=== PATIENT | female | born 2005 | race Caucasian/White ===

== ENCOUNTER 2023-07-23 16:18 | Emergency (ER) | payer MEDICAID ==
[2023-07-23 16:34] VITALS: RESP 24; TEMP 97; O2SAT 98
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
[2023-07-23 17:16] VITALS: BP 131/88; PULSE 83
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
== END 2023-07-23 17:19 | disposition home or self-care (01) ==
LOC: ED 16:18
DX: S13.4XXA Sprain of ligaments of cervical spine, initial encounter (principal); G44.319 Acute post-traumatic headache, not intractable; M25.512 Pain in left shoulder; Z79.899 Other long term (current) drug therapy; Z28.310 Unvaccinated for COVID-19
CPT/HCPCS: 72050; 73030; 99285

== ENCOUNTER 2024-01-11 21:56 | Observation (INO) | payer OTHER ==
[2024-01-11 22:30] LABS: Amphetamine,Urine NEGATIVE (NEGATIVE); Barbiturate,Urine NEGATIVE (NEGATIVE); Benzodiazepine,Urine NEGATIVE (NEGATIVE); Cocaine,Urine NEGATIVE (NEGATIVE); Methadone,Urine NEGATIVE (NEGATIVE); Opiate,Urine NEGATIVE (NEGATIVE); PCP,Urine NEGATIVE (NEGATIVE); THC,Urine POSITIVE (NEGATIVE)
[2024-01-11 22:37] VITALS: RESP 18; TEMP 98.7; O2SAT 99
[2024-01-11 23:06] LABS: Appearance Clear (Clear); Bacteria Rare /HPF (None Seen); Bilirubin Negative (Negative); Blood Negative (Negative); Epithelial Cells Few /HPF (None Seen); Glucose, Urine Negative (Negative); Hyaline Casts NONE SEEN /LPF (0-2); Ketones Trace (Negative); Leukocyte Esterase Small (Negative); Nitrite Negative (Negative); Ph 6.5 (4.6-8.0); Protein,Urine Dip Trace (Negative); Specific Gravity >=1.030 (1.005-1.030)
[2024-01-11 23:07] LABS: ADD URINE CULTURE? YES (NO)
[2024-01-11 23:49] VITALS: BP 125/81; PULSE 95
== END 2024-01-11 23:40 | disposition home or self-care (01) ==
LOC: OB 21:56
PROVIDERS: ADMIT Family Medicine; ATTEND Family Medicine
DX: Z34.82 Encounter for supervision of other normal pregnancy, second trimester (principal); Z3A.27 27 weeks gestation of pregnancy
CPT/HCPCS: 80307; 81001; 87086; G0378; G0379

== ENCOUNTER 2024-09-30 17:02 | Emergency (ER) | payer OTHER ==
[2024-09-30 17:20] VITALS: BP 145/90; PULSE 82; RESP 18; TEMP 97; O2SAT 97
[2024-09-30] MEDS ORDERED: XYLOCAINE VISCOUS 2% 15 ML CUP ONE (17:23)
[2024-09-30] MEDS ORDERED: SILVADENE 50 GM TP ONE (17:24)
[2024-09-30] MEDS: SILVADENE 50 GM TP ONE (17:34)
[2024-09-30] MEDS: XYLOCAINE VISCOUS 2% 15 ML CUP PO ONE (17:34)
[2024-09-30] MEDS ORDERED: MORPHINE SULFATE 4 MG INJ ONE (17:36)
[2024-09-30] MEDS: MORPHINE SULFATE 4 MG INJ IM ONE (17:40)
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
[2024-09-30] MEDS ORDERED: NORCO 5/325 MG ONE (18:04)
[2024-09-30] MEDS: NORCO 5/325 MG PO ONE (18:07)
== END 2024-09-30 18:24 | disposition home or self-care (01) ==
LOC: ED 17:02
DX: T23.232A Burn of second degree of multiple left fingers (nail), not including thumb, initial encounter (principal); T23.152A Burn of first degree of left palm, initial encounter; X15.3XXA Contact with hot saucepan or skillet, initial encounter; Z79.891 Long term (current) use of opiate analgesic; Z79.899 Other long term (current) drug therapy
CPT/HCPCS: 96372; 99283; J2270; A9270-GY

== ENCOUNTER 2024-11-17 13:15 | Emergency (ER) | payer OTHER ==
[2024-11-17 13:28] VITALS: RESP 22; TEMP 98.5
[2024-11-17 13:47] LABS: HCG URINE TEST NEGATIVE (NEGATIVE)
[2024-11-17 13:58] LABS: Absolute Neutrophil Ct (ANC) 3.46 x10^3/uL (1.56-6.13); BASOPHIL % 0.6 % (0.1-1.2); Basophil (Absolute #) 0.04 x10^3/uL (0.01-0.08); Eosinophil % 4.5 % (0.7-5.8); Eosinophil (Absolute #) 0.29 x10^3/uL (0.04-0.36); Hematocrit 34.1 % (34.1-44.9); Hemoglobin 10.4 g/dL (11.2-15.7); IMMATURE GRAN # 0.02 x10^3u/L (0.001-0.031); IMMATURE GRAN % 0.3 % (0.001-0.429); Lymphocyte (Absolute #) 2.26 x10^3/uL (1.18-3.74); Lymphocytes % 34.8 % (19.3-51.7); Mean Cell Volume 73.5 fL (79.4-94.8); Mean Corpuscular Hemoglobin 22.4 pg (25.6-32.2); Mean Corpuscular Hgb Concent. 30.5 g/dL (32.2-35.5); Mean Platelet Volume 10.8 fL (9.4-12.3); Monocyte (Absolute #) 0.43 x10^3/uL (0.24-0.86); Monocytes % 6.6 % (4.7-12.5); Neutrophil % 53.2 % (34.0-71.1); Platelet Count 317 x10^3/uL (182-369); Red Blood Count 4.64 x10^6/uL (3.93-5.22); Red Cell Distribution Width 16.4 % (11.7-14.4); White Blood Count 6.5 x10^3/uL (3.98-10.04)
[2024-11-17] MEDS ORDERED: Robitussin AC Syrup Unit Dose Cup ONE (13:58)
--- NOTE | 2024-11-17 14:01 | ERPHSYRPT ---
- History of Present Illness Time Seen by Provider: 11/17/24 13:45 Source: patient Exam Limitations: no limitations Patient Subjective Stated Complaint: pt reports cough with right side rib pain worse with inspiration. states she was dx with covid on 11-07-24. pt reports f eeling short of breath as well. Triage Nursing Assessment: pt is aox3, pupils perrl, afebrile, resps easy and non labored, lung sounds are clear throughout all bronson, pt has persistent dry cough during exam, radial pulses strong and equal, cap refill < 3 seconds, pt skin pink warm dry. Physician History: 19yo f presents via EMS for cough x 1wk w/ some associated right sided rib pain. Pt reports she tested positive for covid on 11/07/24, has had significant cough since. Pt denies any recent fevers. Pt reports her rib pain worsens w/ deep breathing and coughing. Pt reports she has not tried any medications otc for her sx. Timing/Duration: week(s) (2) Cough Quality/Degree: moderate, dry cough Associated Symptoms: chest pain/soreness, cough, No fever, No chills, No he adache, No nasal drainage, No shortness of breath, No sore throat, No wheezing Allergies/Adverse Reactions: cefaclor [From [facility]] Allergy (Verified 11/17/24 13:28) Home Medications: Etonogestrel/Ethinyl Estradiol [Eluryng Vaginal Ring] 1 ea UD 09/30/24 [History] Hx Tetanus, Diphtheria Vaccination/Date Given: Yes Hx Influenza Vaccination/Date Given: No Hx Pneumococcal Vaccination/Date Given: No Immunizations Up to Date: No Travel Risk - International Travel Have you traveled outside of the country in past 3 weeks: No - Emerging Infectious Disease Are you exhibiting symptoms associated with any current EIDs: Yes Symptoms: Cough: New Onset - Review of Systems Constitutional: No Symptoms Respiratory: Cough, No Dyspnea, No Wheezing Cardiac: Chest Pain, No Edema, No Palpitations, No Orthopnea Abdominal/Gastrointestinal: No Symptoms - Past Medical History Pertinent Past Medical History: No Neurological History: No Pertinent History ENT History: No Pertinent History Cardiac History: No Pertinent History Respiratory History: No Pertinent History Endocrine Medical History: No Pertinent History Musculoskeletal History: No Pertinent History GI Medical History: No Pertinent History History: No Pertinent History Psycho-Social History: No Pertinent History Female Reproductive Disorders: No Pertinent History Other Medical History: BROKEN ARM 2006 - Past Surgical History Past Surgical History: Yes Neuro Surgical History: No Pertinent History Cardiac: No Pertinent History Respiratory: No Pertinent History Gastrointestinal: Appendectomy Genitourinary: No Pertinent History Musculoskeletal: No Pertinent History Female Surgical History: No Pertinent History Other Surgical History: tongue clip- - Female History Hx Last Menstrual Period: 11/05/24 Hx Now: (UNK) - Social History Smoking Status: Current every day smoker Exposure to second hand smoke: No Drug Use: marijuana Patient Lives Alone: No - Social Determinants of Health Will the patient participate in the screening: Declined to provide - Nursing Vital Signs Nursing Vital Signs: Initial Vital Signs Temperature 98.5 F 11/17/24 13:17 Pulse Rate 104 H 11/17/24 13:17 Respiratory Rate 22 11/17/24 13:17 Blood Pressure 178/105 11/17/24 13:17 O2 Sat by Pulse Oximetry 98 11/17/24 13:17 Pain Scale Pain Intensity 6 - Physical Exam General Appearance: no apparent distress, alert Respiratory Exam: normal breath sounds, lungs clear, airway intact, other (minimal TTP over right anterolateral 4th-5th ribs), No chest tenderness, No respiratory distress, No crackles/rales, No rhonchi, No wheezing, No stridor Cardiovascular Exam: regular rate/rhythm, normal heart sounds, normal peripheral pulses Gastrointestinal/Abdomen Exam: soft, No tenderness, No distention SpO2 Interpretation: normal SpO2: 99 O2 Delivery: Room Air - Course EKG Interpreted by Me: RATE (90), Sinus Rhythm, NORMAL ST-T (not suggestive of acute ischemia) Ordered Tests: Active Orders 24 hr Category Date Time Status EKG-ER Only STAT Care 11/17/24 13:54 Active CHEST 2 VIEWS (PA AND LAT) Stat Exams 11/17/24 13:28 Taken CBC W DIFF Stat Lab 11/17/24 13:45 Completed CMP Stat Lab 11/17/24 13:45 Completed HCG QUALITATIVE, URINE Stat Lab 11/17/24 13:30 Completed Medication Summary Discontinued Medications Generic Name Dose Route Start Last Admin Trade Name Freq PRN Reason Stop Dose Admin Guaifenesin/Codeine Phosphate Confirm 11/17/24 13:58 Guaifenesin/Codeine Phosphate 5 Ml Udcup Administered 11/17/24 13:59 Dose 5 ml .ROUTE .STK-MED ONE Guaifenesin/Dextromethorphan 5 ml 11/17/24 13:55 11/17/24 14:09 Guaifenesin/D-Methorphan Hb 118 Ml Syrup PO 11/17/24 13:56 5 ml STAT ONE Administration Lab/Rad Data: Laboratory Result Diagrams 11/17/24 13:45 11/17/24 13:45 Laboratory Results 11/17/24 11/17/24 11/17/24 Range/Units 13:45 13:45 13:30 WBC 6.5 (3.98-10.04) x10^3/uL RBC 4.64 (3.93-5.22) x10^6/uL Hgb 10.4 L (11.2-15.7) g/dL Hct 34.1 (34.1-44.9) % MCV 73.5 L (79.4-94.8) fL MCH 22.4 L (25.6-32.2) pg MCHC 30.5 L (32.2-35.5) g/dL RDW 16.4 H (11.7-14.4) % Plt Count 317 (182-369) x10^3/uL MPV 10.8 (9.4-12.3) fL Gran % 53.2 (34.0-71.1) % Immature Gran % (Auto) 0.3 (0.001-0.429) % Nucleat RBC Rel Count 0.0 (0.00-0.2) % Eos # (Auto) 0.29 (0.04-0.36) x10^3/uL Immature Gran # (Auto) 0.02 (0.001-0.031) x10^3u/L Absolute Lymphs (auto) 2.26 (1.18-3.74) x10^3/uL Absolute Monos (auto) 0.43 (0.24-0.86) x10^3/uL Absolute Nucleated RBC 0.00 (0.00-0.012) x10^3u/L Lymphocytes % 34.8 (19.3-51.7) % Monocytes % 6.6 (4.7-12.5) % Eosinophils % 4.5 (0.7-5.8) % Basophils % 0.6 (0.1-1.2) % Absolute Granulocytes 3.46 (1.56-6.13) x10^3/uL Basophils # 0.04 (0.01-0.08) x10^3/uL Sodium 139 (135-145) mmol/L Potassium 3.5 (3.5-5.1) mmol/L Chloride 108 H (98-107) mmol/L Carbon Dioxide 21 L (22-30) mmol/L Anion Gap 14.1 (5-15) MEQ/L BUN 9 (7-17) mg/dL Creatinine 0.75 (0.52-1.04) mg/dL Estimated GFR 116.1 ML/MIN Glucose 107 H (74-106) mg/dL Calcium 9.6 (8.4-10.2) mg/dL Total Bilirubin 0.30 (0.2-1.3) mg/dL AST 31 (14-36) U/L ALT 45 H (0-35) U/L Alkaline Phosphatase 86 (38-126) U/L Serum Total Protein 8.1 (6.3-8.2) g/dL Albumin 4.5 (3.5-5.0) g/dL Urine HCG, Qual NEGATIVE (NEGATIVE) - Progress Progress: improved Air Movement: good Progress Note: 11/17/24 15:23 cxr negative for acute fracture labs largely unremarkable likely intercostal muscle strain from significant cough cough improved w/ dose of cough suppressant plan for discharge home recommend PCP follow up this week recommend tylenol/ibuprofen alternating for discomfort recommend plenty of oral hydration, OTC cough medications for cough return to ED if: develop shortness of breath, develop worsening pain in the ribs, develop central chest pain or change in current chest discomfort Blood Culture(s) Obtained: No Antibiotics given: No - Departure Departure Disposition: Home Clinical Impression: Cough Qualifiers: Cough type: acute Qualified Code(s): R05.1 - Acute cough Condition: Stable Critical Care Time: No Referrals: DOCTOR,NO FAMILY [Primary Care Provider] - Follow up/PCP as directed Additional Instructions: plan for discharge home recommend PCP follow up this week recommend tylenol/ibuprofen alternating for discomfort recommend plenty of oral hydration, OTC cough medications for cough return to ED if: develop shortness of breath, develop worsening pain in the ribs, develop central chest pain or change in current chest discomfort
[2024-11-17] MEDS: Robitussin-Dm Syrup PO ONE (14:09)
[2024-11-17 14:12] LABS: ALBUMIN 4.5 g/dL (3.5-5.0); ANION GAP 14.1 MEQ/L (5-15); BILIRUBIN,TOTAL 0.3 mg/dL (0.2-1.3); Calcium 9.6 mg/dL (8.4-10.2); Creatinine 1 0.75 mg/dL (0.52-1.04); EST GLOMERULAR FILTRATION RATE 116.1 ML/MIN; Potassium 3.5 mmol/L (3.5-5.1); Total Protein 8.1 g/dL (6.3-8.2)
[2024-11-17 15:43] VITALS: BP 131/98; PULSE 93; O2SAT 98
--- NOTE | 2024-11-17 20:14 | XRAY ---
Indication: Cough. Comparison: None PA/lateral chest demonstrates normal heart, lungs, and bony thorax.
== END 2024-11-17 15:45 | disposition home or self-care (01) ==
LOC: ED 13:15
DX: R05.1 Acute cough (principal); R07.81 Pleurodynia; Z72.0 Tobacco use
CPT/HCPCS: 36415; 71046; 80053; 81025; 85025; 93005; 99283; 99285; A9270-GY

== ENCOUNTER 2024-12-18 00:57 | Emergency (ER) | payer OTHER ==
[2024-12-18 01:03] VITALS: TEMP 97.8; O2SAT 99
--- NOTE | 2024-12-18 01:08 | ERPHSYRPT ---
- History of Present Illness Time Seen by Provider: 12/18/24 01:07 Historian: patient, family Exam Limitations: no limitations Physician History: This is an overweight 19-year-old white female patient who has a history of anxiety, depression, bipolar disorder and hypertension and presents to the emergency department by private vehicle secondary to intermittent, sharp, central, substernal, nonradiating chest pain that has been present for 2 days. Patient has no diagnosed history of coronary artery disease. She is not short of breath. She is not on any new medications. Timing/Duration: day(s) (2), intermittent Activities at Onset: none Quality: sharpness Location: substernal, central Severity of Pain-Max: mild Severity of Pain-Current: mild Modifying Factors: Improves With: nothing Associated Symptoms: denies symptoms Prior Chest Pain/Cardiac Workup: no prior chest pain, no prior cardiac workup Nitro Today/Relief: no nitro taken today Aspirin Treatment Today: 81 mg x 4, provided by ED Allergies/Adverse Reactions: cefaclor [From [facility]] Allergy (Verified 12/18/24 00:58) Home Medications: Amlodipine Besylate [Norvasc] 2.5 mg PO DAILY 12/18/24 [History] Paroxetine HCl 20 mg [Paxil 20 MG] 2 tab PO DAILY 12/18/24 [History] Hx Tetanus, Diphtheria Vaccination/Date Given: Yes Hx Influenza Vaccination/Date Given: No Hx Pneumococcal Vaccination/Date Given: No Travel Risk - Emerging Infectious Disease Are you exhibiting symptoms associated with any current EIDs: Yes Symptoms: Cough: New Onset - Review of Systems Constitutional: No Symptoms Eyes: No Symptoms Ears, Nose, & Throat: No Symptoms Respiratory: No Symptoms Cardiac: Chest Pain Abdominal/Gastrointestinal: No Symptoms Genitourinary Symptoms: No Symptoms Musculoskeletal: No Symptoms Skin: No Symptoms Neurological: No Symptoms Psychological: No Symptoms Endocrine: No Symptoms Hematologic/Lymphatic: No Symptoms Immunological/Allergic: No Symptoms All Other Systems: Reviewed and Negative - Past Medical History Pertinent Past Medical History: No Neurological History: No Pertinent History ENT History: No Pertinent History Cardiac History: No Pertinent History Respiratory History: No Pertinent History Endocrine Medical History: No Pertinent History Musculoskeletal History: No Pertinent History GI Medical History: No Pertinent History History: No Pertinent History Psycho-Social History: No Pertinent History Female Reproductive Disorders: No Pertinent History Other Medical History: BROKEN ARM 2005 - Past Surgical History Past Surgical History: Yes Neuro Surgical History: No Pertinent History Cardiac: No Pertinent History Respiratory: No Pertinent History Gastrointestinal: Appendectomy Genitourinary: No Pertinent History Musculoskeletal: No Pertinent History Female Surgical History: No Pertinent History Other Surgical History: tongue clip-infant - Female History Hx Last Menstrual Period: 11/05/24 - Social History Smoking Status: Current every day smoker Exposure to second hand smoke: No Drug Use: marijuana Patient Lives Alone: No - Social Determinants of Health Will the patient participate in the screening: Declined to provide Do you worry about a steady place to live?: No In the past 12 months,have you had to go without utilities?: No Transportation Issues: No Has anyone in your support network made you feel unsafe?: No Have you or anyone in your house had to go without enough: No - Nursing Vital Signs Nursing Vital Signs: Initial Vital Signs Temperature 97.8 F 12/18/24 01:02 Pulse Rate 96 H 12/18/24 01:02 Respiratory Rate 18 12/18/24 01:02 Blood Pressure 136/90 12/18/24 01:02 O2 Sat by Pulse Oximetry 99 12/18/24 01:02 Pain Scale Pain Intensity 6 - Physical Exam General Appearance: no apparent distress, alert, anxiety Eye Exam: PERRL/EOMI, eyes nml inspection Ears, Nose, Throat Exam: normal ENT inspection, moist mucous membranes Neck Exam: normal inspection, non-tender, supple, full range of motion Respiratory Exam: normal breath sounds, chest tenderness, lungs clear, No respiratory distress, No airway intact Cardiovascular Exam: regular rate/rhythm, normal heart sounds, normal peripheral pulses Gastrointestinal/Abdomen Exam: soft, normal bowel sounds, No tenderness Pelvic Exam: not done Rectal Exam: not done Back Exam: normal inspection, normal range of motion, No CVA tenderness, No vertebral tenderness Extremity Exam: normal inspection, normal range of motion, pelvis stable Neurologic Exam: alert, oriented x 3, cooperative, ged instructor II-XII nml as tested, normal mood/affect, nml cerebellar function, nml station & gait, sensation nml Skin Exam: normal color, warm, dry Lymphatic Exam: No adenopathy SpO2 Interpretation: normal SpO2: 99 O2 Delivery: Room Air - Course Nursing assessment & vital signs reviewed: Yes EKG Interpreted by Me: RATE (95), Sinus Rhythm, NORMAL AXIS, NORMAL INTERVALS, NORMAL QRS, NORMAL ST-T, Other (QTc is 431. No acute ischemia on today's twelve-lead EKG.) Ordered Tests: Active Orders 24 hr Category Date Time Status It Help Desk Technician STAT Care 12/18/24 01:19 Active EKG-ER Only STAT Care 12/18/24 01:18 Active IV Insertion STAT Care 12/18/24 01:18 Active Pulse Oximetry (ED) STAT Care 12/18/24 01:18 Active CHEST 1 VIEW (PORTABLE) Stat Exams 12/18/24 01:19 Ordered CBC W DIFF Stat Lab 12/18/24 01:10 Completed CMP Stat Lab 12/18/24 01:10 Completed D-DIMER QUANTITATIVE Stat Lab 12/18/24 01:10 Completed MAGNESIUM Stat Lab 12/18/24 01:10 Completed TROPONIN Q4H Lab 12/18/24 01:10 Completed TROPONIN Q4H Lab 12/18/24 05:30 Ordered TROPONIN Q4H Lab 12/18/24 09:30 Ordered Medication Summary Discontinued Medications Generic Name Dose Route Start Last Admin Trade Name Freq PRN Reason Stop Dose Admin Aspirin 324 mg 12/18/24 01:18 12/18/24 01:24 Aspirin 81 Mg Tab.Chew PO 12/18/24 01:19 324 mg STAT ONE Administration Aspirin Confirm 12/18/24 01:23 Aspirin 81 Mg Tab.Chew Administered 12/18/24 01:24 Dose 324 mg .ROUTE .STK-MED ONE Lab/Rad Data: Laboratory Result Diagrams 12/18/24 01:10 12/18/24 01:10 Laboratory Results 12/18/24 12/18/24 12/18/24 Range/Units 01:10 01:10 01:10 WBC (3.98-10.04) x10^3/uL RBC (3.93-5.22) x10^6/uL Hgb (11.2-15.7) g/dL Hct (34.1-44.9) % MCV (79.4-94.8) fL MCH (25.6-32.2) pg MCHC (32.2-35.5) g/dL RDW (11.7-14.4) % Plt Count (182-369) x10^3/uL MPV (9.4-12.3) fL Gran % (34.0-71.1) % Immature Gran % (Auto) (0.001-0.429) % Nucleat RBC Rel Count (0.00-0.2) % Eos # (Auto) (0.04-0.36) x10^3/uL Immature Gran # (Auto) (0.001-0.031) x10^3u/L Absolute Lymphs (auto) (1.18-3.74) x10^3/uL Absolute Monos (auto) (0.24-0.86) x10^3/uL Absolute Nucleated RBC (0.00-0.012) x10^3u/L Lymphocytes % (19.3-51.7) % Monocytes % (4.7-12.5) % Eosinophils % (0.7-5.8) % Basophils % (0.1-1.2) % Absolute Granulocytes (1.56-6.13) x10^3/uL Basophils # (0.01-0.08) x10^3/uL D-Dimer 0.39 (0.0-0.50) mg/L Sodium 138 (135-145) mmol/L Potassium 3.7 (3.5-5.1) mmol/L Chloride 105 (98-107) mmol/L Carbon Dioxide 24 (22-30) mmol/L Anion Gap 13.1 (5-15) MEQ/L BUN 11 (7-17) mg/dL Creatinine 0.56 (0.52-1.04) mg/dL Estimated GFR 133.1 ML/MIN Glucose 99 (74-106) mg/dL Calcium 9.1 (8.4-10.2) mg/dL Magnesium 1.9 (1.6-2.3) mg/dL Total Bilirubin 0.30 (0.2-1.3) mg/dL AST 42 H (14-36) U/L ALT 59 H (0-35) U/L Alkaline Phosphatase 81 (38-126) U/L Troponin I < 0.012 (0.000-0.033) ng/mL Serum Total Protein 7.3 (6.3-8.2) g/dL Albumin 4.3 (3.5-5.0) g/dL 12/18/24 Range/Units 01:10 WBC 7.9 (3.98-10.04) x10^3/uL RBC 4.16 (3.93-5.22) x10^6/uL Hgb 9.2 L (11.2-15.7) g/dL Hct 30.3 L (34.1-44.9) % MCV 72.8 L (79.4-94.8) fL MCH 22.1 L (25.6-32.2) pg MCHC 30.4 L (32.2-35.5) g/dL RDW 16.3 H (11.7-14.4) % Plt Count 307 (182-369) x10^3/uL MPV 11.0 (9.4-12.3) fL Gran % 61.8 (34.0-71.1) % Immature Gran % (Auto) 0.3 (0.001-0.429) % Nucleat RBC Rel Count 0.0 (0.00-0.2) % Eos # (Auto) 0.11 (0.04-0.36) x10^3/uL Immature Gran # (Auto) 0.02 (0.001-0.031) x10^3u/L Absolute Lymphs (auto) 2.40 (1.18-3.74) x10^3/uL Absolute Monos (auto) 0.45 (0.24-0.86) x10^3/uL Absolute Nucleated RBC 0.00 (0.00-0.012) x10^3u/L Lymphocytes % 30.5 (19.3-51.7) % Monocytes % 5.7 (4.7-12.5) % Eosinophils % 1.4 (0.7-5.8) % Basophils % 0.3 (0.1-1.2) % Absolute Granulocytes 4.86 (1.56-6.13) x10^3/uL Basophils # 0.02 (0.01-0.08) x10^3/uL D-Dimer (0.0-0.50) mg/L Sodium (135-145) mmol/L Potassium (3.5-5.1) mmol/L Chloride (98-107) mmol/L Carbon Dioxide (22-30) mmol/L Anion Gap (5-15) MEQ/L BUN (7-17) mg/dL Creatinine (0.52-1.04) mg/dL Estimated GFR ML/MIN Glucose (74-106) mg/dL Calcium (8.4-10.2) mg/dL Magnesium (1.6-2.3) mg/dL Total Bilirubin (0.2-1.3) mg/dL AST (14-36) U/L ALT (0-35) U/L Alkaline Phosphatase (38-126) U/L Troponin I (0.000-0.033) ng/mL Serum Total Protein (6.3-8.2) g/dL Albumin (3.5-5.0) g/dL - Progress Progress: improved, re-examined Air Movement: good Progress Note: 12/18/24 01:37 My medical decision making and the assignment of moderate complexity to this patient's medical issue today is based on review of the patient's past medical history, review the patient's medication list, reviewed patient drug allergy list, history present illness and physical findings on examination. The workup in this patient includes placement of an intravenous line, CBC, CMP, magnesium level, twelve-lead EKG, troponin level, D-dimer level, chest x-ray. Differential diagnosis includes but is not limited to stress, anxiety about health, arrhythmia, myocardial infarction, electrolyte abnormalities 12/18/24 02:21 I interpreted the patient's laboratory data results. Based on the laboratory data results, the patient has no acute, emergent medical issue. However, I do see that the patient has chronic anemia and this was discussed with the patient. She was told to follow-up with her primary care provider in order to work this up. I interpreted the patient's preliminary chest x-ray report. There is no acute cardiopulmonary process. Blood Culture(s) Obtained: No Antibiotics given: No Counseled pt/family regarding: lab results, diagnosis, need for follow-up, rad results Medical Desision Making - Diagnostic Testing Diagnostic test were ordered, analyzed, and reviewed by me: Yes Radiological Interpretation: Interpreted by me, Teleradiologist Report - Risk of complications Minimal Risk: Minimal risk of morbidity - Departure Departure Disposition: Home Clinical Impression: Nonspecific chest pain, Chronic anemia Condition: Stable Critical Care Time: No Additional Instructions: Continue your medications as prescribed. Call your primary care provider's office today, 12/18/2024, to make arrangements for follow-up appointment for further evaluation management. Discussed with them about working up your ch ronic anemia
[2024-12-18] MEDS ORDERED: BABY ASPIRIN 81 MG CHEW ONE (01:23)
[2024-12-18] MEDS: BABY ASPIRIN 81 MG CHEW PO ONE (01:24)
[2024-12-18 01:43] LABS: Absolute Neutrophil Ct (ANC) 4.86 x10^3/uL (1.56-6.13); BASOPHIL % 0.3 % (0.1-1.2); Basophil (Absolute #) 0.02 x10^3/uL (0.01-0.08); Eosinophil % 1.4 % (0.7-5.8); Eosinophil (Absolute #) 0.11 x10^3/uL (0.04-0.36); Hematocrit 30.3 % (34.1-44.9); Hemoglobin 9.2 g/dL (11.2-15.7); IMMATURE GRAN # 0.02 x10^3u/L (0.001-0.031); IMMATURE GRAN % 0.3 % (0.001-0.429); Lymphocytes % 30.5 % (19.3-51.7); Mean Cell Volume 72.8 fL (79.4-94.8); Mean Corpuscular Hemoglobin 22.1 pg (25.6-32.2); Mean Corpuscular Hgb Concent. 30.4 g/dL (32.2-35.5); Monocyte (Absolute #) 0.45 x10^3/uL (0.24-0.86); Monocytes % 5.7 % (4.7-12.5); Neutrophil % 61.8 % (34.0-71.1); Platelet Count 307 x10^3/uL (182-369); Red Blood Count 4.16 x10^6/uL (3.93-5.22); Red Cell Distribution Width 16.3 % (11.7-14.4); White Blood Count 7.9 x10^3/uL (3.98-10.04)
[2024-12-18 01:55] LABS: ALBUMIN 4.3 g/dL (3.5-5.0); ANION GAP 13.1 MEQ/L (5-15); BILIRUBIN,TOTAL 0.3 mg/dL (0.2-1.3); Calcium 9.1 mg/dL (8.4-10.2); Creatinine 1 0.56 mg/dL (0.52-1.04); EST GLOMERULAR FILTRATION RATE 133.1 ML/MIN; MAGNESIUM 1.9 mg/dL (1.6-2.3); Potassium 3.7 mmol/L (3.5-5.1); Total Protein 7.3 g/dL (6.3-8.2)
[2024-12-18 02:02] VITALS: BP 117/98; PULSE 87; RESP 23
--- NOTE | 2024-12-18 09:10 | XRAY ---
Indication: Chest pain. Comparison: November 17, 2024 Portable chest again demonstrates normal heart, lungs, and bony thorax.
== END 2024-12-18 02:30 | disposition home or self-care (01) ==
LOC: ED 00:57
DX: R07.9 Chest pain, unspecified (principal); D64.9 Anemia, unspecified; I10 Essential (primary) hypertension; Z79.899 Other long term (current) drug therapy; Z72.0 Tobacco use
CPT/HCPCS: 36415; 71045; 80053; 83735; 84484; 85025; 85379; 93005; 93041; 94760; 99284; 99285; A9270-GY

== ENCOUNTER 2025-01-21 04:36 | Emergency (ER) | payer OTHER ==
[2025-01-21 04:59] VITALS: TEMP 98.8; O2SAT 99
[2025-01-21] MEDS ORDERED: ZOFRAN ODT 4 MG ONE (05:32)
[2025-01-21] MEDS: ZOFRAN ODT 4 MG PO ONE (05:34)
[2025-01-21 06:04] LABS: INFLUENZA A NEGATIVE (NEGATIVE); INFLUENZA B NEGATIVE (NEGATIVE); RESPIRATORY SYNCTIAL VIRUS NEGATIVE (NEGATIVE); SARS-CoV-2 Xpert Express NEGATIVE (NEGATIVE)
--- NOTE | 2025-01-21 06:33 | ERPHSYRPT ---
- History of Present Illness Time Seen by Provider: 01/21/25 05:31 Source: patient Exam Limitations: no limitations Patient Subjective Stated Complaint: woke up and has vomited x2 since 3am and rt arm feels a little numb Triage Nursing Assessment: Pt ambulated into ER without diff. Pt woke up at 3am and has vomited x2 and c/o rt arm having numbness at the shoulder and the elbow. Pt also had diarrhea x1 at 0300 but has had it off and on x2 days. Abd lg, obese with active bs x4 quad, nontender on palpation. 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 Physician History: 19-year-old female with having loose stool off and on for the last couple of days woke up around 330 with nausea and vomited x 2, nonprojectile, nonbilious vomiting without hematemesis. Denies any abdominal pain. Patient denies fever or chills. Reports feeling sudden numbness around right hand wrist and elbow area while she was vomiting which improved and currently she is asymptomatic. No weakness. Denies any known sick contact. Allergies/Adverse Reactions: [facility] Allergy (Verified 01/21/25 04:59) Home Medications: Amlodipine Besylate [Norvasc] 2.5 mg PO DAILY 12/18/24 [History] Paroxetine HCl 20 mg [Paxil 20 MG] 2 tab PO DAILY 12/18/24 [History] Hx Tetanus, Diphtheria Vaccination/Date Given: Yes Hx Influenza Vaccination/Date Given: No Hx Pneumococcal Vaccination/Date Given: No Travel Risk - International Travel Have you traveled outside of the country in past 3 weeks: No - Emerging Infectious Disease Are you exhibiting symptoms associated with any current EIDs: Yes Symptoms: Diarrhea, Vomitting, Other (Please Comment) Comment: numbness to rt arm - Review of Systems Constitutional: No Symptoms Eyes: No Symptoms Ears, Nose, & Throat: No Symptoms Respiratory: No Symptoms Cardiac: No Symptoms Abdominal/Gastrointestinal: Nausea, Vomiting, Diarrhea Genitourinary Symptoms: No Symptoms Musculoskeletal: No Symptoms Skin: No Symptoms Neurological: Sensory Changes Psychological: No Symptoms Endocrine: No Symptoms - Past Medical History Pertinent Past Medical History: No Neurological History: No Pertinent History ENT History: No Pertinent History Cardiac History: Hypertension Respiratory History: No Pertinent History Endocrine Medical History: No Pertinent History Musculoskeletal History: No Pertinent History GI Medical History: No Pertinent History History: No Pertinent History Psycho-Social History: Anxiety, Depression, Other Female Reproductive Disorders: No Pertinent History Other Medical History: BROKEN ARM 2006, bipolar - Past Surgical History Past Surgical History: Yes Neuro Surgical History: No Pertinent History Cardiac: No Pertinent History Respiratory: No Pertinent History Gastrointestinal: Appendectomy Genitourinary: No Pertinent History Musculoskeletal: No Pertinent History Female Surgical History: No Pertinent History Other Surgical History: tongue clip-infant - Female History Hx Last Menstrual Period: 12/22/24 Hx Now: (unknown) - Social History Smoking Status: Never smoker Exposure to second hand smoke: No Drug Use: marijuana - Social Determinants of Health Will the patient participate in the screening: Yes Do you worry about a steady place to live?: No Do you have any problems with any of the following?: No known problems In the past 12 months,have you had to go without utilities?: No Transportation Issues: No Has anyone in your support network made you feel unsafe?: No Have you or anyone in your house had to go w/o enough food: No - Nursing Vital Signs Nursing Vital Signs: Initial Vital Signs O2 Sat by Pulse Oximetry 100 01/21/25 04:56 Pain Scale Pain Intensity 0 - Physical Exam General Appearance: no apparent distress, alert, anxiety Eye Exam: PERRL/EOMI Ears, Nose, Throat Exam: normal ENT inspection Neck Exam: normal inspection, non-tender, supple, full range of motion Respiratory Exam: normal breath sounds, lungs clear Cardiovascular Exam: regular rate/rhythm, normal heart sounds Gastrointestinal/Abdomen Exam: soft, normal bowel sounds, No tenderness, No distention, No guarding Back Exam: normal inspection Extremity Exam: normal inspection, normal range of motion, pelvis stable Neurologic Exam: alert, oriented x 3, cooperative, 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, nml cerebellar function, nml station & gait, sensation nml, No normal mood/affect (Anxious), No motor deficits Skin Exam: normal color SpO2 Interpretation: normal SpO2: 99 O2 Delivery: Room Air Ordered Tests: Medication Summary Discontinued Medications Generic Name Dose Route Start Last Admin Trade Name Freq PRN Reason Stop Dose Admin Ondansetron HCl 4 mg 01/21/25 05:31 01/21/25 05:34 Zofran 4 Mg/Udtablet Orally Disintegrating PO 01/21/25 05:32 4 mg STAT ONE Administration Ondansetron HCl Confirm 01/21/25 05:32 Zofran 4 Mg/Udtablet Orally Disintegrating Administered 01/21/25 05:33 Dose 4 mg .ROUTE .STK-MED ONE Lab/Rad Data: Laboratory Results 01/21/25 Range/Units 05:24 Influenza Type A Ag NEGATIVE (NEGATIVE) Influenza Type B Ag NEGATIVE (NEGATIVE) RSV (PCR) NEGATIVE (NEGATIVE) SARS-CoV-2 (PCR) NEGATIVE (NEGATIVE) - Progress Progress: improved Progress Note: 01/21/25 06:31 19-year-old is evaluated in the ER for loose stool for couple of days off and on and vomiting x 2 prior to arrival. Abdominal exam is soft nontender with normoactive bowel sounds. Patient is not in any distress. She is given Zofran, obtained COVID flu RSV swab which are all negative. She is feeling better on reevaluation, tolerated orally. I believe patient's symptoms are viral etiology, recommended supportive care and will give Zofran to go home. She was complaining of some numbness in the right upper extremity which is already resolved. Do not think needs any workup for that. Discussed signs symptoms of worsening needing return to ER which she seems understanding. Stable for discharge. Counseled pt/family regarding: diagnosis, need for follow-up, rad results Medical Desision Making - Diagnostic Testing Diagnostic test were ordered, analyzed, and reviewed by me: Yes - Risk of complications The pt has a mod risk of morbidity or mortality based on: Need for prescription drug management - Departure Departure Disposition: Home Clinical Impression: Viral gastroenteritis Condition: Stable Critical Care Time: No Referrals: BEN HURTADO DO [Primary Care Provider] - Follow up with PCP 1 day Instructions: Viral gastroenteritis in adults Additional Instructions: Drink plenty of fluids. Take Tylenol/Zofran as needed. Follow-up with primary care for reevaluation. Return to ER for intractable vomiting/diarrhea/abdominal pain or if develop fever chills etc. Prescriptions: Ondansetron ODT 4 MG [Zofran Odt 4 mg] 1 ea PO QIDPRN PRN #7 tablet PRN Reason: n/v
[2025-01-21 06:36] VITALS: BP 128/86; PULSE 84; RESP 13
== END 2025-01-21 06:45 | disposition home or self-care (01) ==
LOC: ED 04:36
DX: A08.4 Viral intestinal infection, unspecified (principal); R11.2 Nausea with vomiting, unspecified; I10 Essential (primary) hypertension; Z79.899 Other long term (current) drug therapy
CPT/HCPCS: 0241U; 99283; Q0162

== ENCOUNTER 2025-03-04 21:16 | Emergency (ER) | payer OTHER ==
[2025-03-04 22:17] VITALS: RESP 18; TEMP 97.8
[2025-03-04 22:30] LABS: Appearance Cloudy (Clear); Bacteria Many /HPF (None Seen); Bilirubin Negative (Negative); Blood Negative (Negative); Epithelial Cells Many /HPF (None Seen); Glucose, Urine Negative (Negative); HCG URINE TEST NEGATIVE (NEGATIVE); Hyaline Casts NONE SEEN /LPF (0-2); Ketones Negative (Negative); Leukocyte Esterase Small (Negative); Nitrite Negative (Negative); Ph 6.5 (4.6-8.0); Protein,Urine Dip Negative (Negative); Urobilinogen 0.2 mg/dL (0.2)
--- NOTE | 2025-03-04 22:56 | ERPHSYRPT ---
- History of Present Illness Historian: patient Exam Limitations: no limitations Patient Subjective Stated Complaint: right sided abd pain Triage Nursing Assessment: Pt ambulated into ER without diff. Pt c/o intermittent rt sided abd pain x2 weeks, but the pain got worse today. Abd lg, obese with active bs x4 quad, tender to RUQ and RLQ. LBM today but pt c/o constipation. Pt c/o nausea but denies any vomiting or indigestion. Physician History: Patient's had right lower quadrant pain for 2 weeks. She has had symptoms like this before. She had an appendix out but it is says that she still has a remnant of her appendix.Nothing really makes his symptoms better. Having a bowel movement makes them worse it is during the active Valsalva eating.She has had no nausea or vomiting or diarrhea. She has had no fever or chills. Just persistent pain over the last 2 weeks in the right lower quadrant. She says it is getting worse is why she came in tonight Timing/Duration: today Activities at Onset: none Allergies/Adverse Reactions: [facility] Allergy (Verified 03/04/25 22:27) Home Medications: Amlodipine Besylate [Norvasc] 2.5 mg PO DAILY 12/18/24 [History] Hx Tetanus, Diphtheria Vaccination/Date Given: Yes Hx Influenza Vaccination/Date Given: No Hx Pneumococcal Vaccination/Date Given: No Travel Risk - International Travel Have you traveled outside of the country in past 3 weeks: No - Emerging Infectious Disease Are you exhibiting symptoms associated with any current EIDs: Yes Symptoms: Abdominal Pain Comment: numbness to rt arm - Review of Systems Constitutional: No Symptoms Eyes: No Symptoms Ears, Nose, & Throat: No Symptoms Respiratory: No Symptoms Abdominal/Gastrointestinal: Abdominal Pain Genitourinary Symptoms: No Symptoms Musculoskeletal: No Symptoms Skin: No Symptoms Neurological: No Symptoms All Other Systems: Reviewed and Negative - Past Medical History Pertinent Past Medical History: No Neurological History: No Pertinent History ENT History: No Pertinent History Cardiac History: Hypertension Respiratory History: No Pertinent History Endocrine Medical History: No Pertinent History Musculoskeletal History: No Pertinent History GI Medical History: No Pertinent History History: No Pertinent History Psycho-Social History: Anxiety, Depression, Other Female Reproductive Disorders: No Pertinent History Other Medical History: BROKEN ARM 2006, bipolar - Past Surgical History Past Surgical History: Yes Neuro Surgical History: No Pertinent History Cardiac: No Pertinent History Respiratory: No Pertinent History Gastrointestinal: Appendectomy Genitourinary: No Pertinent History Musculoskeletal: No Pertinent History Female Surgical History: No Pertinent History Other Surgical History: tongue clip- - Female History Hx Last Menstrual Period: 01/21/25 Hx Now: No - Social History Smoking Status: Never smoker Exposure to second hand smoke: No Drug Use: marijuana - Social Determinants of Health Will the patient participate in the screening: Yes Do you worry about a steady place to live?: No Do you have any problems with any of the following?: No known problems In the past 12 months,have you had to go without utilities?: No Transportation Issues: No Has anyone in your support network made you feel unsafe?: No Have you or anyone in your house had to go w/o enough food: No - Nursing Vital Signs Nursing Vital Signs: Initial Vital Signs Temperature 97.8 F 03/04/25 22:13 Pulse Rate 92 H 03/04/25 22:13 Respiratory Rate 18 03/04/25 22:13 Blood Pressure 155/97 03/04/25 22:13 O2 Sat by Pulse Oximetry 99 03/04/25 22:13 Pain Scale Pain Intensity 6 - Physical Exam General Appearance: no apparent distress Cardiovascular Exam: regular rate/rhythm Gastrointestinal/Abdomen Exam: soft, normal bowel sounds, tenderness (Right lower quadrant) Back Exam: normal inspection, normal range of motion Extremity Exam: normal inspection, normal range of motion Neurologic Exam: alert, oriented x 3 Skin Exam: normal color, warm SpO2: 99 - Course Nursing assessment & vital signs reviewed: Yes Ordered Tests: Active Orders 24 hr Category Date Time Status ABDOMEN AND PELVIS W CONTRAST [CT] Stat Exams 03/04/25 23:03 Completed CULTURE,URINE Stat Lab 03/04/25 22:12 Received HCG QUALITATIVE, URINE Stat Lab 03/04/25 22:12 Completed UA W/RFX UR CULTURE Stat Lab 03/04/25 22:12 Completed Lab/Rad Data: Laboratory Results 03/04/25 03/04/25 Range/Units 22:12 22:12 Urine Color Yellow (Yellow) Urine Appearance Cloudy A (Clear) Urine pH 6.5 (4.6-8.0) Ur Specific [place] 1.020 (1.005-1.030) Urine Protein Negative (Negative) Urine Glucose (UA) Negative (Negative) mg/dL Urine Ketones Negative (Negative) Urine Blood Negative (Negative) Urine Nitrite Negative (Negative) Urine Bilirubin Negative (Negative) Urine Urobilinogen 0.2 (0.2) mg/dL Ur Leukocyte Esterase Small A (Negative) U Hyaline Cast (Auto) NONE SEEN (0-2) /LPF Urine Microscopic RBC 3-5 (0-5) /HPF Urine Microscopic WBC 11-20 A (0-5) /HPF Ur Epithelial Cells Many A (None Seen) /HPF Urine Bacteria Many A (None Seen) /HPF Urine Culture Reflexed YES (NO) Urine HCG, Qual NEGATIVE (NEGATIVE) - Progress Progress Note: Patient was stable throughout stay. We got a CT it was negative. I was little worried with the right lower quadrant and the remnant of her appendix that she could have appendicitis. That is not the case. Her lab work all looks good. I think she just has chronic abdominal issues. Seems to be constant. I am going to discharge her to home in stable condition. On the differential was gastroenteritis, colitis, appendicitis, pyelonephritis. I think of all these she probably does have some possibly some adhesions that act up and give her pain from her appendectomy. 03/05/25 01:33 - Departure Departure Disposition: Home Clinical Impression: Abdominal pain Condition: Stable Critical Care Time: No Referrals: BEN HURTADO, [Primary Care Provider, INTERNAL MEDICINE] - Follow up/PCP as directed Instructions: Abdominal pain
--- NOTE | 2025-03-05 01:08 | XRAY ---
CLINICAL HISTORY: pain RLQ COMPARISON: .. None TECHNIQUE: Multiple contiguous axial images were obtained from the level of diaphragm to the pubis symphysis. This study was acquired after the IV administration of iodinated contrast material, given the patients indications for the examination. If IV contrast material had not been administered, the likelihood of detecting abnormalities relevant to the patients condition would have been substantially decreased. Coronal and sagittal reformatted images were generated and reviewed to improve anatomic localization and optimize lesion detection. CT scan was performed according to ALARA (as low as reasonable achievable). FINDINGS: The visualized lung bases are clear. ABDOMEN/PELVIS: The liver is normal in size and attenuation. No focal liver lesions are seen. There is no intra or extrahepatic biliary ductal dilatation. Hepatic vasculature is patent. The gallbladder is unremarkable. The spleen, pancreas, and adrenal glands are unremarkable. The kidneys are normal in size and attenuation. There is no hydronephrosis or perinephric fat stranding. No renal masses are identified. The ureters are normal in caliber and no ureteral calculi are seen. The bladder is normal in contour. A 3 mm non obstructive calculus noted at mid calyx of right kidney No evidence of focal or diffuse bowel wall thickening or evidence of bowel obstruction is seen. The appendix is visualized in the right lower quadrant and appears within normal limits. No adenopathy or fluid collections are seen. The aorta is normal in caliber. No aggressive appearing osseous lesions are identified. IMPRESSION: 1. A 3 mm non obstructive calculus in mid calyx of right kidney Electronically Signed by: Jorge Dean MD. (03/05/2025 01:04:24 EDT)
[2025-03-05 01:23] VITALS: BP 121/71; PULSE 90
[2025-03-05 01:35] VITALS: O2SAT 99
== END 2025-03-05 01:50 | disposition home or self-care (01) ==
LOC: ED 21:16
DX: R10.31 Right lower quadrant pain (principal); I10 Essential (primary) hypertension; Z79.899 Other long term (current) drug therapy
CPT/HCPCS: 74177; 81001; 81025; 87086; 99284; 99285